=== PATIENT | female | born 1970 | race Caucasian/White ===

== ENCOUNTER 2023-11-05 05:14 | Emergency (ER) | payer OTHER, SELFPAY ==
[2023-11-05 05:18] VITALS: BP 194/101
[2023-11-05 06:06] VITALS: BMI 37.2
--- NOTE | 2023-11-05 06:09 | ED.GENMED ---
History of Present Illness
General
Chief Complaint: Abdominal Pain
Source: patient and spouse
Exam Limitations: none
Time Seen by Provider: 11/05/23 06:02
Nursing documentation reviewed up to this point in time: agreed with
Travel History
Have you had any contact with someone who has COVID-19?: No
Do you have any symptoms of coronavirus? Fever > 100 degrees, chills, cough, shortness of breath, sore throat, loss of taste or smell, muscle aches, or headache?: No
History of Present Illness
History of Present Illness:
53-year-old female presents emergency department complaining of right upper quadrant abdominal pain rating around to the right mid back since 2:30 AM. She ate shrimp tacos last at 7:30 PM last night. She has never had this type pain before. She
feels nauseous but no vomiting or diarrhea. She did not take any medicine for the pain.
Past History
Past History
ED Past Medical History: None
ED Past Surgical History: Other (Abscess)
Social History
Tobacco: Non-smoker
Alcohol: None
Drug: None
Personal:
Living: with family
Review of Systems
Review of Systems
Allergies reviewed?: Yes
All Other Systems: Not applicable
Constitutional: Reports no symptoms; Denies fever
EENT: Reports no symptoms
Respiratory: Reports no symptoms
Cardiac: Reports no symptoms
ABD/GI: Reports abdominal pain and nausea
: Reports no symptoms
Musculoskeletal: Reports no symptoms
Skin: Reports no symptoms
Neurological: Reports no symptoms
Endocrine: Reports no symptoms
Hematologic/Lymphatic: Reports no symptoms
Psychiatric: Reports no symptoms
Phy Exam
Physical Exam
Physical Exam:
Physical Exam
General: Blood pressure 194/101, afebrile
Neck: supple. no meningeal signs. normal posterior pharynx
Heart: s1/s2 regular rate and rhythm, no murmur. equal radial
pulses.
HEENT: Pupils equal round reactive to light, EOMI
Lungs: no acute respiratory distress. clear bilaterally
Abdomen: normal bowel sounds. Right upper quadrant tenderness, rebound tenderness. No CVAT
Neuro: alert and oriented. no focal neurological deficits cranial nerves II through XII intact
Skin: no rash
Psychiatric: well kept. interactive and cooperative
Extremities: no edema. no calf tenderness. negative homans. good distal pulses
Course
Orders/Labs/Results
Orders:
Orders
11/05/23 06:04
Electrocardiogram (*1) Stat
Reason for Study: Abdominal Pain
EKG- Treatment ONCE
11/05/23 06:08
US Abdomen Complete/Upper Urgent
Comment:
Reason For Exam: ruq pain since 230am
11/05/23 06:09
IV Insert/Care/Rem.- Treatment PRN
0.9% Sodium Chloride 1000 ml [Nss] 1,000 ml IV BOLUS
Morphine Sulfate 4 mg IV NOW STA
Ondansetron Injectable [Zofran] 4 mg IV NOW STA
11/05/23 06:18
Complete Blood Count/With Diff Urgent
Comprehensive Metabolic Panel Urgent
Lipase Urgent
11/05/23 07:29
CT Abd/pelvis W Iv Cont Urgent
Comment:
Reason For Exam: ruq/right flank pain
11/05/23 07:34
Ketorolac [Toradol] 15 mg IV NOW STA
11/05/23 08:48
Urinalysis Reflex To Culture Urgent
Date Specimen was Collected: 11/05/23
Time Specimen was Collected: 05:37
11/05/23 10:02
Ketorolac [Toradol] 15 mg IV NOW STA
Abnormal Lab Results
11/05/23
06:18
MCH 31.7 H pg
(27.0-31.0)
Plt Count 410 H 10^3/uL
(130-400)
Absolute Neuts (auto) 7.3 H 10^3/uL
(1.4-6.5)
Chloride 108 H mmol/L
(98-107)
Carbon Dioxide 21 L mmol/L
(22-30)
Glucose 142 H mg/dl
(70-99)
11/05/23 06:18
11/05/23 06:18
Vital Signs
Initial and Last Documented VS:
Initial Vital Signs
Temp Pulse Resp BP Pulse Ox
97.9 F 86 16 194/101 99
11/05/23 05:18 11/05/23 05:18 11/05/23 05:18 11/05/23 05:18 11/05/23 05:18
Last Documented Vital Signs
Temp Pulse Resp BP Pulse Ox
98.2 F 64 18 182/93 99
11/05/23 10:12 11/05/23 10:12 11/05/23 10:12 11/05/23 10:00 11/05/23 10:12
MDM/Problems Addressed
Differential Diagnosis Includes:
Kidney stone, cholecystitis
MDM/Problems Addressed:
53-year-old female with right flank pain, unclear etiology. Do not suspect AAA, aortic dissection. No signs of cholecystitis or pancreatitis. Stable for discharge. Follow-up with primary care.
*Radiology
Radiology exam reviewed: radiology read reviewed (Ultrasound abdomen no acute findings, CT abdomen pelvis no acute findings)
*Pulse Oximetry
Patient hypoxic: no
*EKG
Interpreted by ED Provider?: Yes
EKG Intrepretation Date: 11/05/23
EKG Intrepretation Time: 06:33
Interpretation: normal
Comparison EKG: no comparison EKG present
Heart Rate: 83
Rate: normal
Rhythm: sinus
[place]: normal axis
Interval: normal interval
QRS Pattern: normal QRS
Ischemia: no ischemia
*Cartoon Artist Interpretation
Rate: normal
Interpretation: normal
Heart Rate: 80
Rhythm: sinus
*Critical Care Note
Total Time (30-74mins, 75-104mins- exclusive of procedures): Not Applicable
Patient Management
Social determinants of health affecting care: Living situation
Discussion with other providers: PCP (call placed to PCP, unable to reach at this time)
Escalation/DeEscalation of care consider admission/obs:
admit not indicated
ED Attending Note
-
Portions of this chart may have been created with voice recognition software.� Occasional wrong word or��sound alike� substitutions may have occurred due to the inherent limitations of voice recognition software.
Discharge Plan
Departure
Patient Disposition: Home (Routine Discharge)
Date of Disposition: 11/05/23
Time of Disposition: 09:28
Patient with high blood pressure during this ER visit?: Yes
Condition: Good
Discharge Problem:
Acute abdominal pain in right flank
Instructions: Abdominal Pain, Adult ED
Prescriptions:
New
pantoprazole [Protonix] 40 mg tablet,delayed release (DR/EC)
40 mg PO DAILY Qty: 30 0RF
Referrals:
Laura Connelly DO [Family Provider] - Call in 1-3 days for appt
Interventions
Interventions:
*Risk Screen - Suicide Last Done: 11/05/23 05:18
*General Assessment Last Done: 11/05/23 06:06
*Neglect/Abuse Screening Last Done: 11/05/23 05:18
ED- Fall Risk Assessment Last Done: 11/05/23 10:12
*ED COVID-19 Vaccine History Last Done: 11/05/23 05:18
*Nursing Disposition Last Done: 11/05/23 10:12
VJ-[id number]-[id number] Assessment Last Done: 11/05/23 06:06
Discharge Date and Time
Discharge Date/Time: 11/05/23 10:13
Print Language: ROMANSH
[2023-11-05] MEDS: ZOFRAN 4 MG IV (06:14)
[2023-11-05] MEDS: NSS 1000 IV (06:14)
[2023-11-05] MEDS: MORPHINE SULFATE 4 MG IV (06:15)
[2023-11-05 06:35] VITALS: BP 160/83
[2023-11-05 06:36] VITALS: BP 160/83
[2023-11-05 06:36] LABS: % Eosinophils 1.9 % (0-6); % Immature Granulocytes 0.4 % (0-0.5); % Lymphocytes 21.5 % (20.5-51.1); % Monocytes 5.9 % (1.7-9.3); % Neutrophils 69.3 % (42.2-75.2); Absolute Basophils 0.1 10^3/uL (0-0.2); Absolute Eosinophils 0.2 10^3/uL (0-0.7); Absolute Lymphocytes 2.3 10^3/uL (1.2-3.4); Absolute Monocytes 0.6 10^3/uL (0.1-0.6); Absolute Neutrophils 7.3 10^3/uL (1.4-6.5); Hematocrit 41.9 % (37.0-47.0); Hemoglobin 14.6 g/dL (12.0-16.0); Mean Corp Hgb Conc. 34.8 g/dL (33.0-37.0); Mean Corpuscular Hgb 31.7 pg (27.0-31.0); Mean Corpuscular Volume 91.1 fL (81.0-99.0); Mean Platelet Volume 10.2 fL (7.4-10.4); Nucleated Red Blood Cells % 0 %; Platelet Count 410 10^3/uL (130-400); Red Cell Dist. Width 13.3 % (11.5-14.5); White Blood Cell Count 10.5 10^3/uL (4.8-10.8)
[2023-11-05 06:53] LABS: ALT (SGPT) 27 U/L (0-35); AST (SGOT) 22 U/L (14-36); Albumin 4.7 g/dl (3.5-5.0); Alkaline Phosphatase 85 U/L (38-126); Blood Urea Nitrogen 15 mg/dl (7-17); Calcium 9.9 mg/dl (8.4-10.2); Carbon Dioxide 21 mmol/L (22-30); Chloride 108 mmol/L (98-107); Estimated Creatinine Clearance 113 ml/min; Glucose 142 mg/dl (70-99); Lipase 69 U/L (23-300); Potassium 4.6 mmol/L (3.5-5.1); Sodium 137 mmol/L (135-145); Total Bilirubin 0.5 mg/dl (0.2-1.3); Total Protein 7.4 g/dl (6.3-8.2); eGFR > 60.00
[2023-11-05] MEDS: TORADOL 15 MG IV ×2 (07:39→10:07)
[2023-11-05 09:11] LABS: Urine Albumin Negative (Neg - Trace); Urine Bilirubin Negative (Negative); Urine Character Clear (Clear); Urine Color Yellow; Urine Glucose Negative (Negative); Urine Ketone Negative (Negative); Urine Leukocyte Negative (Negative); Urine Nitrite Negative (Negative); Urine Occult Blood Negative (Negative); Urine Urobilinogen Negative (Neg - 1+); Urine pH 6.5 (5.0-9.0)
[2023-11-05 10:00] VITALS: BP 182/93
== END 2023-11-05 10:13 | disposition home or self-care (01) ==
LOC: EMR 05:14
PROVIDERS: Emergency Medicine; EMERGENCY PHYSICIAN Emergency Medicine; FAMILY PHYSICIAN Family Medicine
DX: R10.11 Right upper quadrant pain (principal); R11.0 Nausea; R03.0 Elevated blood-pressure reading, without diagnosis of hypertension
CPT/HCPCS: 99285; 96374; 96375 ×2; 96361; 96376; 74177; 76700; 80053; 81003; 83690; 85025; 93005; Q9967